=== PATIENT | female | born 1985 | race Two or more races ===

== ENCOUNTER 2020-08-31 11:15 | Emergency (ER) | payer SELFPAY ==
[~2020-08-31] VITALS: Ht 154.9 cm; Wt 70.3 kg
[2020-08-31 12:36] VITALS: BP 107/64
[2020-08-31 12:49] LABS: Urine Bacteria FEW /hpf (None Seen); Urine Blood 3+ /uL (Negative); Urine Mucus FEW (None Seen); Urine Specific Gravity 1.018 (1.001-1.035); Urine WBC 14 /hpf (0 - 5)
[2020-08-31] MEDS ORDERED: NITR-87 PO (13:31)
== END 2020-08-31 13:32 | disposition home or self-care (01) ==
LOC: EDBD 11:15 → ER 11:15
DX: O46.91 Antepartum hemorrhage, unspecified, first trimester (principal); O23.41 Unspecified infection of urinary tract in pregnancy, first trimester; Z3A.01 Less than 8 weeks gestation of pregnancy
CPT/HCPCS: 36415; 81001; 84702

== ENCOUNTER 2020-12-13 08:23 | Emergency (ER) | payer MEDICAID, OTHER ==
[~2020-12-13] VITALS: Ht 152.4 cm; Wt 73.5 kg
[~2020-12-13 08:23] MED LIST: NITR-87 PO
[2020-12-13 11:27] VITALS: BP 123/76
== END 2020-12-13 11:27 | disposition home or self-care (01) ==
LOC: ER 08:23
DX: R19.7 Diarrhea, unspecified (principal); F12.10 Cannabis abuse, uncomplicated; Z20.822 Contact with and (suspected) exposure to COVID-19
CPT/HCPCS: 36415; 87426

== ENCOUNTER 2021-04-07 10:15 | Emergency (ER) | payer OTHER ==
[~2021-04-07] VITALS: Ht 152.4 cm; Wt 74.8 kg
[2021-04-07 10:49] LABS: Urine Bacteria MOD /hpf (None Seen); Urine Blood 1+ /uL (Negative); Urine Mucus FEW (None Seen); Urine Specific Gravity 1.012 (1.001-1.035); Urine WBC 1 /hpf (0 - 5)
[2021-04-07 12:18] VITALS: BP 128/85
== END 2021-04-07 12:24 | disposition home or self-care (01) ==
LOC: ER 10:15
DX: O23.41 Unspecified infection of urinary tract in pregnancy, first trimester (principal); N39.0 Urinary tract infection, site not specified; Z3A.01 Less than 8 weeks gestation of pregnancy
CPT/HCPCS: 81001; 81025

== ENCOUNTER 2023-04-07 08:22 | Emergency (ER) | payer MEDICAID, OTHER ==
[~2023-04-07] VITALS: Ht 152.4 cm; Wt 83.4 kg
[2023-04-07 08:56] VITALS: BP 133/89; PULSE 98; RESP 16; TEMP 98.3; O2SAT 99
== END 2023-04-07 09:30 | disposition home or self-care (01) ==
LOC: ER 08:22
DX: S01.01XA Laceration without foreign body of scalp, initial encounter (principal); F12.10 Cannabis abuse, uncomplicated; W26.8XXA Contact with other sharp object(s), not elsewhere classified, initial encounter; Y93.89 Activity, other specified; Y92.89 Other specified places as the place of occurrence of the external cause; Y99.8 Other external cause status
CPT/HCPCS: 12001